=== PATIENT | male | born 1985 ===

== ENCOUNTER → 2020-04-25 20:32 | Outpatient (CLI) | payer MEDICARE ==
[2020-04-25 21:24] LABS: BILIRUBIN NEGATIVE (NEGATIVE); KETONE NEGATIVE (NEGATIVE); NITRITE NEGATIVE (NEGATIVE); UROBILINOGEN NORMAL mg/dL (< 2)
[2020-04-25 21:25] LABS: WHITE CELLS - URINE 0-5 HPF (0-1)
[2020-04-25 21:26] LABS: BACTERIA FEW HPF (NONE SEEN)
== END | disposition home or self-care (01) ==
LOC: D.LABREF 20:32
PROVIDERS: ATTEND Family Medicine
DX: Z43.5 Encounter for attention to cystostomy (principal)